=== PATIENT | female | born 1975 ===

== ENCOUNTER 2019-12-22 10:39 | Outpatient (CLI) | payer OTHER ==
[~2019-12-22 10:39] MED LIST: KETO10TA2 PO; ORPH100T PO
== END 2019-12-22 10:45 | disposition home or self-care (01) ==
LOC: LAB 10:39
PROVIDERS: ATTEND Emergency Medicine
DX: N39.0 Urinary tract infection, site not specified (principal)

== ENCOUNTER → 2020-03-18 | Outpatient (CLI) | payer OTHER | END | disposition home or self-care (01) | LOC: PPH VACUNA 05:00 | DX: Z23 Encounter for immunization (principal) ==

== ENCOUNTER 2021-03-21 08:00 | Outpatient (CLI) | payer OTHER | END 2021-03-21 08:30 | disposition home or self-care (01) | LOC: PPH VACUNA 08:00 | PROVIDERS: ATTEND Emergency Medicine Pediatric Emergency Medicine | DX: Z23 Encounter for immunization (principal) ==

== ENCOUNTER 2021-11-22 18:06 | Emergency (ER) | payer OTHER ==
[~2021-11-22] VITALS: Ht 157.5 cm; Wt 90.7 kg
== END 2021-11-23 00:25 | disposition home or self-care (01) ==
LOC: ER 18:06
DX: B34.9 Viral infection, unspecified (principal); Z20.822 Contact with and (suspected) exposure to COVID-19; I10 Essential (primary) hypertension; Z72.0 Tobacco use; Z88.8 Allergy status to other drugs, medicaments and biological substances

== ENCOUNTER 2022-02-04 17:46 | Emergency (ER) | payer OTHER ==
[~2022-02-04] VITALS: Ht 157.5 cm; Wt 90.7 kg
[2022-02-04] MEDS ORDERED: NORVASC2.5 M1 PO (18:00)
[2022-02-04] MEDS ORDERED: TOPROL XL25 M1 (18:00)
[2022-02-04] MEDS ORDERED: COZAAR100 MG PO (18:00)
== END 2022-02-04 21:22 | disposition home or self-care (01) ==
LOC: ER 17:46
DX: B34.9 Viral infection, unspecified (principal); Z88.6 Allergy status to analgesic agent; Z20.822 Contact with and (suspected) exposure to COVID-19

== ENCOUNTER 2022-03-15 09:49 | Outpatient (CLI) | payer OTHER ==
[~2022-03-15 09:49] MED LIST changes: +COZAAR100 MG PO; +NORVASC2.5 M1 PO; +TOPROL XL25 M1
== END 2022-03-15 09:54 | disposition home or self-care (01) ==
LOC: PPH VACUNA 09:49
PROVIDERS: ATTEND Emergency Medicine Pediatric Emergency Medicine
DX: Z23 Encounter for immunization (principal)